=== PATIENT | male | born 1955 | race Two or more races ===

== ENCOUNTER 2016-10-08 08:01 | Day surgery (SDC) | payer MEDICARE ==
[2016-10-07 12:00] VITALS: BMI 31.6
[2016-10-08] MEDS ORDERED: ceFAZolin SODIUM 1 GM VIAL ONE (08:17)
[2016-10-08] MEDS ORDERED: ePHEDrine SULFATE 50 MG/1 ML AMPULE ONE (08:17)
[2016-10-08] MEDS ORDERED: KETOROLAC TROMETHAMINE 30 MG/1 ML VIAL ONE (08:17)
[2016-10-08] MEDS ORDERED: DEXAMETHASONE SOD PHOSPHATE 4 MG/1 ML VIAL ONE (08:17)
[2016-10-08] MEDS ORDERED: SODIUM CHLORIDE 0.9% P/F 10 ML VIAL IJ ONE (08:17)
[2016-10-08] MEDS ORDERED: MIDAZOLAM HCL 2 MG/2 ML SINGLE DOSE VIAL ONE ×3 (08:18→08:52)
[2016-10-08] MEDS ORDERED: ROCURONIUM BROMIDE 50 MG/5 ML VIAL ONE (08:18)
[2016-10-08] MEDS ORDERED: SUCCINYLCHOLINE CHLORIDE 200 MG/10 ML VIAL ONE (08:18)
[2016-10-08] MEDS ORDERED: ROPIVACAINE HCL 0.5% 30ML VIAL ONE (08:52)
--- NOTE | 2016-10-08 09:41 | HP ---
Satellite [facility] - Chief Complaint Chief Complaint: left shoulder pain - Past Medical History Allergies/Adverse Reactions: Allergies Allergy/AdvReac Type Severity Reaction Status Date / Time No Known Drug Allergies Allergy Verified 10/07/16 12:00 - Current Medications Current Medications: Home Medications Medication Instructions Recorded Amlodipine Besylate/Benazepril 1 each PO DAILY 10/07/16 [Lotrel 5-40 mg Capsule] Fenofibrate [Lofibra] 160 mg PO DAILY 10/07/16 Simvastatin 20 mg PO DAILY 10/07/16 Hydrocodone/Acetaminophen 1 each PO Q6H #40 tablet MDD 4 10/08/16 [Hydrocodon-Acetaminoph 7.5-325] Satellite Physical Exam - Physical Examination Vital Signs: Vital Signs Period Temp Pulse Resp BP Sys/Sandoval Pulse Ox Last 24 Hr 97.4 F 69 18 139/74 99 General Appearance: Well Nourished, Well Developed, Alert & Oriented x3 ENT: Clear Lung: Normal air movement Heart: Regular rate & rhythm Extremities: Other (left shoulder- + ttp, decr rom, + neer, + rasmussen, nvi) Neurological: Intact, Alert, Oriented Satellite Impression/Plan - Impression/Plan Impression: left shoulder impingement Operative Procedure: left shoulder arthroscopy with KORY AVINA Date to be Performed: 10/08/16
[2016-10-08] MEDS ORDERED: ceFAZolin SODIUM 1 GM VIAL IVPB ONE (09:51)
--- NOTE | 2016-10-08 11:02 | OP ---
Operative Note - Note: Operative Date: 10/08/16 Pre-Operative Diagnosis: left shoulder subacromial impingement, adhesive capsulitis Operation: left shoulder arthroscopy, subacromial decompression, distal clavicle excision, extensive debridement, manipulation under anesthesia Post-Operative Diagnosis: Same as Pre-op Surgeon: Jamin Aguilar Cut Off Machine Operator: Blas Crisostomo Anesthesiologist/TRACK OILER: Chris Kelsey Jr. Anesthesia: General, Local Specimens Removed: shavings Estimated Blood Loss (mls): 50 Blood Volume Replaced (mls): 0 Fluid Volume Replaced (mls): 700 Operative Report Dictated: Yes
[2016-10-08] MEDS ORDERED: ONDANSETRON 4 MG/2 ML VIAL IVPUSH PRN (11:42)
[2016-10-08] MEDS ORDERED: oxyCODONE HCL 5 MG TABLET PO PRN (11:42)
[2016-10-08] MEDS ORDERED: LACTATED RINGERS SOLUTION 1,000 ML IV SCH (11:45)
--- NOTE | 2016-10-08 12:21 | OP ---
DATE OF OPERATION: PREOPERATIVE DIAGNOSIS: Left shoulder subacromial impingement and adhesive capsulitis. POSTOPERATIVE DIAGNOSIS: Left shoulder subacromial impingement and adhesive capsulitis. PROCEDURE: Left shoulder arthroscopy, subacromial decompression, distal clavicle excision, and manipulation under anesthesia. SURGEON: Harsh Remy MD CORPORATE WELLNESS COORDINATOR: DAWN Chavis ANESTHESIA: Chris Kelsey, RADIOGRAPHER TECHNOLOGIST, left interscalene block, LMA anesthesia. DRAINS: None. COMPLICATIONS: None. BLOOD LOSS: Minimal. BLOOD GIVEN: None. FLUID REPLACEMENT: 700 mL Plasma-Lyte. INDICATIONS: This patient is a 61-year-old male with a preoperative diagnosis of left shoulder subacromial impingement and adhesive capsulitis. After understanding the potential risks, complications, alternatives, benefits to surgery versus nonsurgical treatment, the patient was brought to the operating room. DESCRIPTION OF PROCEDURE: The patient was brought to the operating room. Peripheral IV place. IV sedation given. Then 1 g of IV Ancef was given. A left interscalene block was performed. LMA anesthesia was induced. He was placed into the beach chair position then measured his range of motion. He had a significant adhesive capsulitis. He had only 1 or 2 degrees of external rotation. Abduction was to 85 degrees. Forward flexion was to 90 degrees. Internal rotation was limited as well. I did a manipulation under anesthesia and improved his range of motion dramatically in all planes. The left upper extremity was then prepped and draped in sterile fashion. The bony landmarks were marked out with a marking pen and a posterior portal established. The diagnostic glenohumeral arthroscopy was performed. Although there was some blood in the joint, which was evacuated, there was no rotator cuff tear. The labrum looked good. There was no glenohumeral arthritis. The biceps tendon looked good. Everything inside the joint looked good. It was irrigated and washed out. Next, our attention was turned to the subacromial space. Lateral portal was established with a spinal needle and No. 11 scalpel blade. A green cannula was introduced into the subacromial space. There was a tremendous amount of subacromial bursitis. After extensive debridement using the ArthroCare wand revealed a very large subacromial bony spur as well as a subclavicular spur. Additional soft tissue debridement was done with the ArthroCare wand then the straight shaver then the 5.5-mm oval bur was used to take down the subacromial and distal subclavicular spur. It was then cleaned up with a shaver. All bony debris was removed. The top surface of the rotator cuff was directly visualized and the arm put through a full range of motion. There was no evidence of pathology of the top surface of the rotator cuff. The area was copiously irrigated and washed out. All excess saline removed. The arthroscopy portal was closed with 3-0 nylon sutures in a figure of eight fashion. The area was then washed and dried and covered with two 4-inch Aquacel dressings and a sling was put on. Total operative time was about 45 minutes. There were no complications during the case. The patient tolerated the procedure quite well. He was extubated and brought to the regular recovery room in stable condition. HARSH REMY M.D. [id number]
[2016-10-08 12:57] VITALS: TEMP 98
[2016-10-08] MEDS ORDERED: oxyCODONE HCL 5 MG TABLET ONE (13:15)
[2016-10-08 14:03] VITALS: BP 153/75; PULSE 81
--- NOTE | 2016-10-09 12:58 | PATH ---
Surgical Pathology Report Patient Name: MIGUEL A MASTERS [facility]. Rec. #: [id number] /Age/Gender: 1955 (Age: 61) / M Account: [id number] Location: [facility] SURGICAL Taken: 10/08/2016 Received: 10/08/2016 Reported: 10/09/2016 Physicians: Jamin Aguilar M.D. Specimen(s) Received LEFT SHOULDER SHAVINGS Clinical History Left shoulder impingement Frozen shoulder (adhesive capsulitis) Final Diagnosis LEFT SHOULDER, ARTHROSCOPIC SHAVING: PORTIONS OF SYNOVIUM, CARTILAGE, SKELETAL MUSCLE AND BONE CONSISTENT WITH ARTHROSCOPIC SHAVINGS. Electronically Signed Fletcher Nicole M.D. Gross Description Received in formalin, labeled "left shoulder shavings," is a 4.5 x 4.0 x 0.5 cm. aggregate of mcdermott-yellow soft tissue fragments. A new accounts banking representative portion is submitted in one cassette. /10/08/201610/08/2016
== END 2016-10-08 14:00 | disposition home or self-care (01) ==
LOC: JASU-SURG 08:01
PROVIDERS: ATTEND Orthopaedic Surgery
PROC: 0RBK4ZZ Excision of Left Shoulder Joint, Percutaneous Endoscopic Approach (ICD-10-PCS; principal; 2016-10-08 09:30)
PROC: 0PBB4ZZ Excision of Left Clavicle, Percutaneous Endoscopic Approach (ICD-10-PCS; 2016-10-08 09:30)
DX: M75.42 Impingement syndrome of left shoulder (principal); M75.02 Adhesive capsulitis of left shoulder
CPT/HCPCS: 88304-TC; 94760

== ENCOUNTER 2019-02-01 15:20 | Inpatient (IN) | payer OTHER ==
[2019-02-01] MEDS ORDERED: DIPHTH,PERTUSS(ACELL),TET 0.5 ML DISP.SYRIN IM ONE ×2 (15:38→17:46)
[2019-02-01] MEDS ORDERED: SODIUM CHLORIDE 1,000 ML IV STA (15:38)
[2019-02-01 15:39] VITALS: BMI 31.6
--- NOTE | 2019-02-01 15:44 | PDOC ---
Rapid Medical Evaluation Chief Complaint: Syncope/Near Syncope Time Seen by Provider: 02/01/19 15:36 Medical Evaluation: Allergies Allergy/AdvReac Type Severity Reaction Status Date / Time No Known Drug Allergies Allergy Verified 10/07/16 12:00 02/01/19 15:39 Pt c/o: flet dizzy after going outside x 5 minutes. Then woke up on the ground with abrasions to rt forehead Pt on brief exam: vss, noted superficial to forehead Pt ordered for: labs, ekg, iv, head ct, bgm pt to proceed to the ED Discharge Disposition - Diagnosis Syncope Qualifiers: Syncope type: unspecified Qualified Code(s): R55 - Syncope and collapse - Referrals - Patient Instructions - Post Discharge Activity
--- NOTE | 2019-02-01 17:38 | PDOC ---
History of Present Illness - General Chief Complaint: Syncope/Near Syncope Stated Complaint: SYNCOPE/INJURY Time Seen by Provider: 02/01/19 15:36 - History of Present Illness Initial Comments: The pt is a 63M w/ a history of HTN and HLD who presents for evaluation s/p syncopal fall from standing today. He reports that he was sitting outside washing clothes, stood rapidly, syncopized, hit his head on the [employer] walkway and quickly recovered. He endorses several months of intermittent lightheadedness that is described as both room spinning and feeling as though he may pass out. It is usually worse with sit to stand or bend over to stand. He has never syncopized before. He denies any cardiac/neurologic w/u for his dizziness. He denies chest pain before or after the event. Denies recent illness, fevers/chills, chest pain, SOB, abdominal pain, V/C/D, dysuria, hematuria, blood in stool or changes in sensation Denies recent changes in HTN meds or PO intake PMH: HTN, HLD PSH: Knee surgery Allergies: Denies SH: Denies x3 02/01/19 18:34 Past History - Past Medical History Allergies/Adverse Reactions: Allergies Allergy/AdvReac Type Severity Reaction Status Date / Time No Known Drug Allergies Allergy Verified 10/07/16 12:00 Home Medications: Ambulatory Orders Amlodipine Besylate/Benazepril [Lotrel 5-40 mg Capsule] 1 each PO DAILY Fenofibrate [Lofibra] 160 mg PO DAILY 10/07/16 Simvastatin 20 mg PO DAILY 10/07/16 Tamsulosin HCl 0.4 mg PO DAILY 02/01/19 Anemia: No Asthma: No Cancer: Yes (COLON 2009) Cardiac Disorders: No CVA: No COPD: No CHF: No Dementia: No Diabetes: No GI Disorders: No Disorders: No HTN: Yes Hypercholesterolemia: Yes Liver Disease: No Seizures: No Thyroid Disease: No - Surgical History Abdominal Surgery: Yes Appendectomy: No Cardiac Surgery: No Cholecystectomy: No Lung Surgery: No Neurologic Surgery: No Orthopedic Surgery: No - Suicide/Smoking/Psychosocial Hx Smoking History: Never smoked Have you smoked in the past 12 months: No Information on smoking cessation initiated: No Hx Alcohol Use: No Drug/Substance Use Hx: No Substance Use Type: None Hx Substance Use Treatment: No Review of Systems - Review of Systems Able to Perform ROS?: Yes Comments:: GENERAL/CONSTITUTIONAL: No fever or chills. No weakness HEAD, EYES, EARS, NOSE AND THROAT: No change in vision. No ear pain or discharge. No sore throat CARDIOVASCULAR: No chest pain or shortness of breath RESPIRATORY: Denies cough, hemoptysis GASTROINTESTINAL: No vomiting, diarrhea or constipation GENITOURINARY: No dysuria, frequency, or change in urination MUSCULOSKELETAL: No joint or muscle swelling or pain. No neck or back pain SKIN: +abrasion to R forehead NEUROLOGIC: No or change in strength/sensation ENDOCRINE: No increased thirst. No abnormal weight change HEMATOLOGIC/LYMPHATIC: No anemia, easy bleeding, or history of blood clots ALLERGIC/IMMUNOLOGIC: No hives or skin allergy 02/01/19 17:37 Is the patient limited Turkmen proficient: No *Physical Exam - Vital Signs Last Vital Signs Temp Pulse Resp BP Pulse Ox 98.2 F 81 78 H 105/74 97 02/01/19 15:36 02/01/19 15:36 02/01/19 15:36 02/01/19 15:36 02/01/19 15:36 - Physical Exam Comments: GENERAL: Awake, alert, and oriented to person/place/time, in no acute distress HEAD: No signs of trauma, normocephalic, atraumatic EYES: PERRLA, EOMI, sclera anicteric, conjunctiva clear ENT: Hearing grossly normal, nares patent, oropharynx clear without exudates. Moist mucosa LUNGS: No distress, speaks in full sentences, clear to auscultation bilaterally HEART: Regular rate and rhythm, normal S1 and S2, no murmurs appreciated, peripheral pulses normal and equal bilaterally ABDOMEN: Soft, nontender, normoactive bowel sounds. No guarding, no rebound EXTREMITIES: Normal inspection, Normal range of motion, no edema. No clubbing or cyanosis NEUROLOGICAL: Cranial nerves II through XII grossly intact. Normal speech, normal gait, no focal sensorimotor deficits SKIN: 1cm laceration above R eyebrow, linear, w/o active hemorrhage 02/01/19 17:37 Procedures - Laceration/Wound Repair Right Upper Face Wound Length: to 2.5 cm Wound Explored: clean Wound's Depth, Shape: superficial Irrigated w/ Saline: Yes Betadine Prep: No Anesthesia: 1% Lidocaine Amount of Anesthetic (ccs): 3 Wound Repaired With: Sutures Suture Size/Type: 5:0 Number of Sutures: 4 Layer Closure: No Sterile Dressing Applied: Yes (Bacitracin and sterile gauze) ED Treatment Course - LABORATORY CBC & Chemistry Diagram: 02/01/19 18:16 02/01/19 18:16 Medical Decision Making - Medical Decision Making The pt is a 63M w/ a history of HTN and HLD who presents for evaluation s/p syncopal fall from standing and a R forehead laceration Ddx includes othostatic, vasovagal, consider but less likely ACS, lyte abn, AAA/ AD ED Course Labs sent ECG CXR CT head R eyebrow laceration repaired w/ 4 5-0 nylon sutures which will need to be removed in 5-7 days -Wash daily with soap and water. Pat dry. Apply bacitracin/neosporin for the first 1-3 days. May leave open to air otherwise Plan for tele obs for syncope CT Head w/o acute pathology Labs pending Pt signed out to Dr. Boyd 02/01/19 19:02 *DC/Admit/Observation/Transfer Diagnosis at time of Disposition: Syncope Qualifiers: Syncope type: unspecified Qualified Code(s): R55 - Syncope and collapse - Referrals Referrals: Jeremiah Martinez MD [Primary Care Provider] - - Patient Instructions - Post Discharge Activity
--- NOTE | 2019-02-01 18:36 | PDOC ---
Documentation entered by Everette Edmondson SCRIBE, acting as scribe for Jena Justice MD. Jena Justice MD: This documentation has been prepared by the sharminibe, Everette Edmondson SCRIBE, under my direction and personally reviewed by me in its entirety. I confirm that the documentation accurately reflects all work, treatment, procedures, and medical decision making performed by me. Attending Attestation - Resident Resident Name: Christopher Bajwa - ED Attending Attestation I have performed the following: I have examined & evaluated the patient, The case was reviewed & discussed with the resident, I agree w/resident's findings & plan, Exceptions are as noted - HPI HPI: 02/01/19 18:10 63-year-old male was outside washing clothes and passed out He said he fell and hit his head on the walkway. He was able to stand up after the incident with assistance. History of present illness he has had several of these episodes of lightheadedness in the last few months. Past medical history hypertension. He is not on any anticoagulation. Impression :close head trauma ,syncope. Patient will get cardiac workup, head CT and be admitted to telemetry 02/01/19 18:17 02/01/19 18:28 - Physicial Exam PE: 02/01/19 18:29 63 -year-old male presents after head trauma and syncope head :he has a right forehead abrasion, small 2 cm laceration and hematoma eyes tom eomi Face : no nasal bridge involvement,no fracture teeth, no mandibular tenderness neck no cervical tenderness lungs cta b/l cvs [id number] abd no tenderness extremities :no deformities, no ecchymosis skin warm and dry neuro axox3,no gross focal neuro deficits , dtr+2,motor strength 5/5,b/l - Medical Decision Making 02/01/19 18:[address] scan head/cardiac monitoring,labs,ekg,admit to telemetry 02/01/19 19:53 ct scan head no acute intracranial pathology labs wnl, negative first trop pt admitted to hospitalist /telemetry
[2019-02-01 18:55] LABS: BASO % 0.4 % (0-2.0); EOS % 0.5 % (0-4.5); HEMATOCRIT 47.2 % (35.4-49); HEMOGLOBIN 15.7 GM/dL (11.7-16.9); LYMPH % 11.9 % (8-40); MCH 29.5 pg (25.7-33.7); MCHC 33.2 g/dl (32.0-35.9); MEAN PLT VOLUME 10.2 fl (7.5-11.1); MONO % 7.3 % (3.8-10.2); NEUT % 79.9 % (42.8-82.8); PLATELET COUNT 200 K/MM3 (134-434); RDW 14.1 % (11.9-15.9); WHITE BLOOD COUNT 9.4 K/mm3 (4.0-10.0)
[2019-02-01 18:56] LABS: EPI CELLS 0.7 /HPF (0-5/HPF); HYALINE CASTS 3 /lpf (0-8); PH,URINE 6.5 (5.0-8.0); URINE APPEARANCE CLEAR; URINE BILIRUBIN NEGATIVE (NEGATIVE); URINE COLOR YELLOW; URINE GLUCOSE (UA) NEGATIVE (NEGATIVE); URINE KETONE TRACE (NEGATIVE); URINE LEUK ESTERASE TRACE (NEGATIVE); URINE NITRITE NEGATIVE (NEGATIVE); URINE PROTEIN NEGATIVE (NEGATIVE); URINE RBC 1 /hpf (0-4); URINE WBC 4 /hpf (0-5)
--- NOTE | 2019-02-01 19:17 | PDOC ---
*Physical Exam - Vital Signs Last Vital Signs Temp Pulse Resp BP Pulse Ox 98.2 F 81 78 H 105/74 97 02/01/19 15:36 02/01/19 15:36 02/01/19 15:36 02/01/19 15:36 02/01/19 15:36 ED Treatment Course - LABORATORY CBC & Chemistry Diagram: 02/01/19 18:16 02/01/19 18:16 - ADDITIONAL ORDERS Additional order review: Laboratory Results 02/01/19 02/01/19 19:06 18:35 POC Glucometer 123 Urine Color Yellow Urine Appearance Clear Urine pH 6.5 Ur Specific [place] 1.025 Urine Protein Negative Urine Glucose (UA) Negative Urine Ketones Trace H Urine Blood Negative Urine Nitrite Negative Urine Bilirubin Negative Urine Urobilinogen 1.0 Ur Leukocyte Esterase Trace Urine WBC (Auto) 4 Urine RBC (Auto) 1 Urine Casts (Auto) 3 U Epithel Cells (Auto) 0.7 Urine Bacteria (Auto) 2.0 02/01/19 19:06 POC Glucometer 123 - Medications Given in the ED: ED Medications Discontinued Medications Generic Name Dose Route Start Last Admin Trade Name Freq PRN Reason Stop Dose Admin Diphtheria/Tetanus/Acell Pertussis 0.5 ml 02/01/19 15:38 02/01/19 18:37 Boostrix - IM 02/01/19 15:39 0.5 ml .ONCE ONE Administration Sodium Chloride 1,000 mls @ 1,000 mls/hr 02/01/19 15:38 02/01/19 18:35 Normal Saline - IV 02/01/19 16:37 1,000 mls/hr ASDIR STA Administration Medical Decision Making - Medical Decision Making 02/01/19 19:10 Jeremi Van is a 63yo man with a PMH of HTN and HLD who presented to the ED with syncope. He reports that he has had numerous episodes of dizziness in the past but has never fainted; he has not been worked up for the episodes previously. ED course so far notable for: - Laceration, repaired by Dr Bajwa - Borderline hypotensive on arrival w/ SBP 105 - Labs pending - CT head negative for acute injury - Per Dr Bajwa, plan to admit to tele for additional workup has been discussed with the pt 02/01/19 19:40 - Labs completed. No concerning abnormalities - UA negative - PMD is not on staff (Dr Jeremiah Martinez). Will send microblog for admission for syncope workup 02/01/19 19:54 - Discussed with hospitalist team, Dr Kennedy. Will be admitted to Dr Lockett's service - Orthostatic vitals ordered - Updated pt and family. All agree with the plan Discussed with Dr Justice. Akua Boyd PGY2 *DC/Admit/Observation/Transfer Diagnosis at time of Disposition: Syncope Qualifiers: Syncope type: unspecified Qualified Code(s): R55 - Syncope and collapse - Discharge Dispostion Decision to Admit order: Yes - Referrals Referrals: Jeremiah Martinez MD [Primary Care Provider] - - Patient Instructions - Post Discharge Activity
[2019-02-01 19:18] LABS: ALBUMIN 4.4 g/dl (3.4-5.0); BILIRUBIN,TOTAL 0.4 mg/dL (0.2-1); BLOOD UREA NITROGEN 10.8 mg/dL (7-18); CALCIUM 9.4 mg/dL (8.5-10.1); CREATININE 0.9 mg/dL (0.55-1.3); POTASSIUM 4.1 mmol/L (3.5-5.1); TOT PROT 7.5 g/dl (6.4-8.2)
--- NOTE | 2019-02-01 19:59 | PN ---
Teaching Attending Note Name of Resident: Shara Kennedy ATTENDING PHYSICIAN STATEMENT I saw and evaluated the patient. I reviewed the resident's note and discussed the case with the resident. I agree with the resident's findings and plan as documented. SUBJECTIVE: Patient is a 63-year-old man with PMH of HTN, HLD, BPH, Rectal cancer and ? remote DVT who was outside washing clothes and passed out. He said he fell and hit his head on the walkway. He was able to stand up after the incident with assistance. He has had several of these episodes of lightheadedness in the last few months. He is not on any anticoagulation. Nonsmoker and denies use of any illicit drugs or alcohol abuse. No recent sick contacts or travel. Denies chest pain, SOB, abdominal pain, nausea, vomiting, diarrhea, constipation, dysuria, hematuria, blood in stool or changes in sensation. Got tetanus shot in the ER. OBJECTIVE: Alert and not orthostatic Vital Signs Period Temp Pulse Resp BP Sys/Sandoval Pulse Ox Last 24 Hr 98.2 F 81 78 105/74 97 HEENT: No Jaundice, eye redness or discharge, PERRLA, EOMI. Normocephalic; right eyebrow laceration sutured. External ears are normal and hearing is grossly intact. No nasal discharge. Neck: Supple, nontender. No palpable adenopathy or thyromegaly. No JVD Chest: Good effort. Clear to auscultation and percussion. Heart: Regular. No S3, rub or murmur Abdomen: Not distended, soft, nontender and no HSM. No rebound or guarding. Normal bowel sounds. Ext: Peripheral pulses intact. No leg edema. Skin: Warm and dry. No petechiae, rash or ecchymosis. Neuro: Alert. Oriented x3. CN 2-12 grossly intact. Sensation grossly intact in all four extremities and DTR are symmetric. Psych: Appropriate mood and affect. Good insight. Home Medications Medication Instructions Recorded Amlodipine Besylate/Benazepril 1 each PO DAILY 10/07/16 [Lotrel 5-40 mg Capsule] Fenofibrate [Lofibra] 160 mg PO DAILY 10/07/16 Simvastatin 20 mg PO DAILY 10/07/16 Tamsulosin HCl 0.4 mg PO DAILY 02/01/19 Abnormal Lab Results 02/01/19 02/01/19 18:16 18:35 Anion Gap 7 L Urine Ketones Trace H ASSESSMENT AND PLAN: 1. Syncope - Cause unclear. No acute pathology on noncontrast head CT and CXR. EKG shows MARV with 1o AV block and no significant ST-T wave changes and initial troponin is negative. Will admit to telemetry, get brain MRI/MRA, carotid doppler, TSH, urine toxicology, EEG and Neurology consult. Implement strict fall precautions. 2. Obesity Counseled on the risks associated with obesity. Will provide patient all the necessary assistance, counseling and positive reinforcement to facilitate weight loss. Consult construction driller. 3. Hypertension - BP was low on arrival. Will restart suitable outpatient antihypertensive drugs when clinically appropriate. Revise regimen to ensure good BP control. Nonpharmacologic measures to control hypertension like weight loss, salt restriction and exercise discussed. 4. DVT prophylaxis - Lovenox 40 mg SQ q 24 hours. 5. Advance directives - Full code
[2019-02-01] MEDS ORDERED: PATIENT'S OWN MEDICATION (NON-FORMULARY) (Simvastatin [Simvastatin] 20 MG) PO SCH (21:00)
[2019-02-01] MEDS ORDERED: ENOXAPARIN NA (PORCINE) 40 MG/0.4 ML DISP.SYRIN SQ ONE (21:26)
--- NOTE | 2019-02-01 21:30 | HP ---
CHIEF COMPLAINT: syncope PCP: Juan HISTORY OF PRESENT ILLNESS: Mr. Van is a 63 yo male with HTN, HLD, and hx of rectal ca who presents after syncopal episode. He was outside washing clothes and while leaning over felt dizzy and lost consciousness and hit his head on a decorative rock. He reports he has had episodes of dizziness intermittently for the last 3 years, no syncope. No neuro workup has been done. He has seen cards in the past and reports generally no significant problems. He reported nausea with this syncope , although he says he is not normally nauseous when he gets dizzy. He has a head lac on the right forehead with some associated pain isolated to that area. He does not have a generalized headache. He denies diaphoresis, chest pain, recent changes in appetite or oral intake. He reports swelling in upper and lower extremities bilaterally with occasional numbness in hands. Patient's family at bedside to help with translation. ER course was notable for: (1) (2) (3) Recent Travel: PAST MEDICAL HISTORY: 1. HTN 2. HLD 3. rectal ca 4. lumbar radiculopathy PAST SURGICAL HISTORY: colon cancer with colostomy Social History: Smoking: none Alcohol: none Drugs: none Lives at home with daughter and Family History: mother- breast cancer father- [place] age 75 brother- CABG in 50s Allergies No Known Drug Allergies Allergy (Verified 10/07/16 12:00) HOME MEDICATIONS: Home Medications Medication Instructions Recorded Amlodipine Besylate/Benazepril 1 each PO DAILY 10/07/16 [Lotrel 5-40 mg Capsule] Fenofibrate [Lofibra] 160 mg PO DAILY 10/07/16 Simvastatin 20 mg PO DAILY 10/07/16 Tamsulosin HCl 0.4 mg PO DAILY 02/01/19 REVIEW OF SYSTEMS CONSTITUTIONAL: Absent: fever, chills, diaphoresis, generalized weakness, malaise, loss of appetite, weight change HEENT: Absent: eye pain, visual changes CARDIOVASCULAR: Absent: chest pain, syncope, palpitations, irregular heart rate, peripheral edema RESPIRATORY: Absent: cough, shortness of breath, dyspnea with exertion GASTROINTESTINAL: Present: nausea Absent: abdominal pain, abdominal distension, vomiting GENITOURINARY: Absent: dysuria MUSCULOSKELETAL: Present: back pain Absent: myalgia, arthralgia, joint swelling, neck pain SKIN: Present: wound Absent: rash, itching, pallor HEMATOLOGIC/IMMUNOLOGIC: Absent: easy bleeding, easy bruising, lymphadenopathy, frequent infections ENDOCRINE: Absent: unexplained weight gain, unexplained weight loss NEUROLOGIC: Present: dizziness Absent: headache, focal weakness or paresthesias, dizziness, unsteady gait, seizure, mental status changes, bladder or bowel incontinence PSYCHIATRIC: Absent: anxiety, depression, suicidal or homicidal ideation, hallucinations. PHYSICAL EXAMINATION Vital Signs - 24 hr 02/01/19 02/01/19 15:36 20:19 Temperature 98.2 F Pulse Rate 81 Pulse Rate [ 66 Left side Sitting] Pulse Rate [ 63 Right side Supine] Respiratory 78 H Rate Blood Pressure 105/74 Blood Pressure 128/74 [Left side Sitting] Blood Pressure 125/74 [Right side Supine] O2 Sat by Pulse 97 Oximetry (%) GENERAL: Awake, alert, and fully oriented, in no acute distress. HEAD: R frontal head wound, taped, no bleeding EYES: Pupils equal, round and reactive to light, extraocular movements intact, sclera anicteric, conjunctiva clear. No lid lag. EARS, NOSE, THROAT: Ears normal, nares patent, moist mucous membranes. NECK: Normal range of motion, supple without lymphadenopathy, JVD, or masses. LUNGS: Breath sounds equal, clear to auscultation bilaterally. No wheezes, and no crackles. No accessory muscle use. HEART: Regular rate and rhythm, normal S1 and S2 without murmur, rub or gallop. ABDOMEN: Soft, nontender, not distended, normoactive bowel sounds, no guarding, no rebound, no masses. No hepatomegaly or splenomegaly. MUSCULOSKELETAL: Normal range of motion at all joints. No bony deformities or tenderness. UPPER EXTREMITIES: 2+ pulses, warm, well-perfused. No cyanosis. No clubbing. Minimal edema in hands. LOWER EXTREMITIES: 2+ pulses, warm, dusky color. Minimal edema in feet. NEUROLOGICAL: Cranial nerves II-XII intact. Normal speech. PSYCHIATRIC: Cooperative. Good eye contact. Appropriate mood and affect. SKIN: Warm, dry, normal turgor, no rashes noted, normal capillary refill. Laboratory Results - last 24 hr 02/01/19 02/01/19 02/01/19 18:16 18:16 18:16 WBC 9.4 RBC 5.30 Hgb 15.7 Hct 47.2 MCV 89.0 MCH 29.5 MCHC 33.2 RDW 14.1 Plt Count 200 MPV 10.2 Absolute Neuts (auto) 7.5 Neutrophils % 79.9 Lymphocytes % 11.9 Monocytes % 7.3 Eosinophils % 0.5 Basophils % 0.4 Nucleated RBC % 0 Sodium 141 Potassium 4.1 Chloride 106 Carbon Dioxide 28 Anion Gap 7 L BUN 10.8 Creatinine 0.9 Est GFR (CKD-EPI)AfAm 105.72 Est GFR (CKD-EPI)NonAf 91.22 POC Glucometer Random Glucose 95 Calcium 9.4 Total Bilirubin 0.4 AST 15 ALT 20 Alkaline Phosphatase 56 Creatine Kinase 159 Creatine Kinase Index 1.0 CK-MB (CK-2) 1.7 Troponin I < 0.02 Total Protein 7.5 Albumin 4.4 Urine Color Urine Appearance Urine pH Ur Specific [place] Urine Protein Urine Glucose (UA) Urine Ketones Urine Blood Urine Nitrite Urine Bilirubin Urine Urobilinogen Ur Leukocyte Esterase Urine WBC (Auto) Urine RBC (Auto) Urine Casts (Auto) U Epithel Cells (Auto) Urine Bacteria (Auto) 02/01/19 02/01/19 18:35 19:06 WBC RBC Hgb Hct MCV MCH MCHC RDW Plt Count MPV Absolute Neuts (auto) Neutrophils % Lymphocytes % Monocytes % Eosinophils % Basophils % Nucleated RBC % Sodium Potassium Chloride Carbon Dioxide Anion Gap BUN Creatinine Est GFR (CKD-EPI)AfAm Est GFR (CKD-EPI)NonAf POC Glucometer 123 Random Glucose Calcium Total Bilirubin AST ALT Alkaline Phosphatase Creatine Kinase Creatine Kinase Index CK-MB (CK-2) Troponin I Total Protein Albumin Urine Color Yellow Urine Appearance Clear Urine pH 6.5 Ur Specific [place] 1.025 Urine Protein Negative Urine Glucose (UA) Negative Urine Ketones Trace H Urine Blood Negative Urine Nitrite Negative Urine Bilirubin Negative Urine Urobilinogen 1.0 Ur Leukocyte Esterase Trace Urine WBC (Auto) 4 Urine RBC (Auto) 1 Urine Casts (Auto) 3 U Epithel Cells (Auto) 0.7 Urine Bacteria (Auto) 2.0 ASSESSMENT/PLAN: The patient is a 63 yo male with HTN, HLD, and rectal cancer who has been having intermittent dizziness over the last several years and had a syncopal episode today. 1. syncope Patient has not had a neuro workup since experiencing the dizziness about 3 years ago. His head CT was negative, EKG showed 1st degree AV block but otherwise unremarkable for arrhythmia. Pt's orthostatic negative (supine 124/80 60HR, sitting 130/92 64HR) so should be adequately hydrated. He has normal WBC, is afebrile, and normotensive and CXR shows no apparent pneumonia, so unlikely underlying infection occurring. -fluids -CBC -CMP -TSH -urine toxicology -carotid doppler r/o vascular disease -MRI brain r/o ischemia, hemorrhage -EEG r/o seizure -neuro consult DVT prophylaxis Lovenox 40mg SQ daily FEN NS 75mL/hr monitor electrolytes cardiac diet Visit type - Emergency Visit Emergency Visit: Yes ED Registration Date: 02/01/19 Care time: The patient presented to the Emergency Department on the above date and was hospitalized for further evaluation of their emergent condition. - New Patient This patient is new to me today: Yes Date on this admission: 02/02/19 - Critical Care Critical Care patient: No ATTENDING PHYSICIAN STATEMENT I saw and evaluated the patient. I reviewed the resident's note and discussed the case with the resident. I agree with the resident's findings and plan as documented. SUBJECTIVE: OBJECTIVE: ASSESSMENT AND PLAN:
[2019-02-01] MEDS: SODIUM CHLORIDE 1,000 ML IV SCH (21:33)
[2019-02-01] MEDS: ENOXAPARIN NA (PORCINE) 40 MG/0.4 ML DISP.SYRIN SQ SCH (21:33)
[2019-02-02] MEDS: ATORVASTATIN CA 10 MG TABLET (FP) PO SCH ×2 (00:51→23:00)
[2019-02-02 06:51] LABS: BASO % 0.2 % (0-2.0); EOS % 0.9 % (0-4.5); HEMATOCRIT 41.4 % (35.4-49); LYMPH % 13.1 % (8-40); MCH 30.3 pg (25.7-33.7); MCHC 33.9 g/dl (32.0-35.9); MEAN CELL VOLUME 89.2 fl (80-96); MONO % 9.1 % (3.8-10.2); NEUT % 76.7 % (42.8-82.8); PLATELET COUNT 167 K/MM3 (134-434); RBC 4.64 M/mm3 (4.00-5.60); RDW 14.1 % (11.9-15.9); WHITE BLOOD COUNT 6.8 K/mm3 (4.0-10.0)
[2019-02-02 08:00] LABS: ALBUMIN 3.4 g/dl (3.4-5.0); ALK PHOS 50 U/L (45-117); ANION GAP 6 MMOL/L (8-16); BILIRUBIN,TOTAL 0.4 mg/dL (0.2-1); BLOOD UREA NITROGEN 10.2 mg/dL (7-18); CALCIUM 8.2 mg/dL (8.5-10.1); CHLORIDE 111 mmol/L (98-107); CO2 27 mmol/L (21-32); CREATININE 0.8 mg/dL (0.55-1.3); GLUCOSE,RANDOM 82 mg/dL (74-106); MAGNESIUM 2.4 mg/dL (1.8-2.4); PHOSPHOROUS 2.5 mg/dL (2.5-4.9); POTASSIUM 4.2 mmol/L (3.5-5.1); SGOT/AST 14 U/L (15-37); SGPT/ALT 18 U/L (13-61); SODIUM 144 mmol/L (136-145); TOT PROT 6.2 g/dl (6.4-8.2)
--- NOTE | 2019-02-02 08:33 | EKG ---
Test Reason : Blood Pressure : / mmHG Vent. Rate : 079 BPM Atrial Rate : 079 BPM P-R Int : 216 ms QRS Dur : 092 ms QT Int : 380 ms P-R-T Axes : 032 026 036 degrees QTc Int : 435 ms SINUS RHYTHM WITH 1ST DEGREE A-V BLOCK OTHERWISE NORMAL ECG NO PREVIOUS ECGS AVAILABLE Confirmed by LIV VELASCO, SILAS ([id number]) on 02/02/2019 8:32:54 AM Referred By: Confirmed By:SILAS PECK MD
[2019-02-02] MEDS: ENOXAPARIN NA (PORCINE) 40 MG/0.4 ML DISP.SYRIN SQ SCH (10:00)
[2019-02-02] MEDS ORDERED: PATIENT'S OWN MEDICATION (NON-FORMULARY) (Fenofibrate [Lofibra] 160 MG) PO SCH (10:00)
[2019-02-02] MEDS ORDERED: ENOXAPARIN NA (PORCINE) 40 MG/0.4 ML DISP.SYRIN SQ ONE (10:23)
--- NOTE | 2019-02-02 11:02 | CON.NEURO ---
Consult - History of Present Illness History of Present Illness: 63 yo male with HTN, HLD, and hx of rectal ca who presents after syncopal episode. He was outside washing clothes and while leaning over felt dizzy and lost consciousness for few seconds, and hit his head on a rock. He reports he has had episodes of dizziness intermittently for the last 3 years, no syncope. He has seen cards in the past and reports generally no significant problems. He reported nausea with this syncope, although he says he is not normally nauseous when he gets dizzy. He has a head lac on the right forehead with some associated pain isolated to that area. He does not have a generalized headache. He denies diaphoresis, chest pain, recent changes in appetite or oral intake. He reports swelling in upper and lower extremities bilaterally with occasional numbness in hands. NO HX of epilepsy. no toxic habits. no focal c/o. HD CT (-) - Alcohol/Substance Use Hx Alcohol Use: No - Smoking History Smoking history: Never smoked Have you smoked in the past 12 months: No Home Medications - Allergies Allergies/Adverse Reactions: Allergies Allergy/AdvReac Type Severity Reaction Status Date / Time No Known Drug Allergies Allergy Verified 02/02/19 07:23 - Home Medications Home Medications: Ambulatory Orders Amlodipine Besylate/Benazepril [Lotrel 5-40 mg Capsule] 1 each PO DAILY Fenofibrate [Lofibra] 160 mg PO DAILY 10/07/16 Simvastatin 20 mg PO DAILY 10/07/16 Tamsulosin HCl 0.4 mg PO DAILY 02/01/19 Physical Exam-Neuro Vital Signs: Vital Signs Temperature 98.1 F 02/02/19 10:45 Pulse Rate 65 02/02/19 10:45 Respiratory Rate 18 02/02/19 10:45 Blood Pressure 141/74 02/02/19 10:45 O2 Sat by Pulse Oximetry (%) 98 02/02/19 10:45 Labs: CBC, BMP 02/02/19 06:12 02/02/19 06:12 - Neuro Exam Level Of Consciousness: Yes: Alert, Oriented to Person (EOMI, no facila, motor 5 /5, reflexes symmetric ) Imaging - Results Cat Scan: Report Reviewed, Image Reviewed Assessment/Plan 63 yo male with HTN, HLD, and hx of rectal ca who presents after syncopal episode. He was outside washing clothes and while leaning over felt dizzy and lost consciousness for few seconds, and hit his head on a rock. He reports he has had episodes of dizziness intermittently for the last 3 years, no syncope. He has seen cards in the past and reports generally no significant problems. He reported nausea with this syncope, although he says he is not normally nauseous when he gets dizzy. He has a head lac on the right forehead with some associated pain isolated to that area. He does not have a generalized headache. He denies diaphoresis, chest pain, recent changes in appetite or oral intake. He reports swelling in upper and lower extremities bilaterally with occasional numbness in hands. NO HX of epilepsy. no toxic habits. no focal c/o. HD CT (-), labs WNL , TSH NL AP : syncopal episode-- ? vasovagal, preceded by vertigo; nonfocal neuro exam doubt vertebrobasilar disease, though since few episodes in past will check MRI MRA head and neck no evidence to suggest seizure or acute stroke, cardiac BROWN PRN DR LARES
--- NOTE | 2019-02-02 15:40 | ECHO ---
Name: GUERRERO OUSMANERICH Exam:Adult Echocardiogram Study Date: 02/02/2019 08:35 AM Age: 63 yrs Reason For Study: SYNCOPE Height: 65 in Weight: 190 lb BSA: 1.9 m2 MMode/2D Measurements & Calculations IVSd: 1.2 cm Ao root diam: 3.3 cm LVIDd: 4.4 cm LA dimension: 3.5 cm LVIDs: 2.7 cm LVPWd: 1.1 cm EDV(Teich): 86.1 ml LVOT diam: 2.0 cm ESV(Teich): 26.4 ml LAV (MOD-bp): 57.7 ml Doppler Measurements & Calculations MV E max jason: 70.3 cm/sec Ao V2 max: 156.1 cm/sec MV A max jason: 72.8 cm/sec Ao max P.7 mmHg MV E/A: 0.97 MV dec time: 0.15 sec NUNO(V,D): 2.1 cm2 LV V1 max P.3 mmHg TR max jason: 230.3 cm/sec LV V1 max: 103.8 cm/sec TR max P.3 mmHg PA V2 max: 134.4 cm/sec Med Peak E' Jason: 7.0 cm/sec PA max P.2 mmHg Med E/e': 10.1 Lat Peak E' Jason: 10.7 cm/sec Lat E/e': 6.6 PI Vmax: 133.0 cm/sec Procedure A two-dimensional transthoracic echocardiogram with color flow and Doppler was performed. Left Ventricle The left ventricular size, thickness and function are normal. The left ventricular ejection fraction is normal. E/A reversal consistent with but not diagnostic of poor LV compliance. The left ventricular w all motion is normal. Right Ventricle The right ventricle is normal in size and function. Atria Normal left and right atrial size and function. Mitral Valve There is mild mitral valve thickening. There is no mitral valve stenosis. There is mild mitral regurg itation. Tricuspid Valve There is mild tricuspid valve thickening. There is no tricuspid stenosis. There is mild tricuspid regurgitation. Right ventricular systolic pressure is normal. Aortic Valve The aortic valve is normal in structure and function. No hemodynamically significant valvular aortic stenosis. No aortic regurgitation is present. Pulmonic Valve The pulmonic valve is not well visualized. Great Vessels The aortic root is normal size. Pericardium/Pleura There is no pericardial effusion. Interpretation Summary The left ventricular size, thickness and function are normal The left ventricular ejection fraction is normal. The left ventricular wall motion is normal. There is mild mitral regurgitation. There is mild tricuspid regurgitation. Right ventricular systolic pressure is normal. E/A reversal consistent with but not diagnostic of poor LV compliance MD Mario Randolph 02/02/2019 03:40 PM
--- NOTE | 2019-02-02 16:00 | PN ---
Physical Exam: SUBJECTIVE: Patient seen and examined at bedside in ED this AM. Patient was lying comfortably in no acute distress. No acute events overnight. OBJECTIVE: Vital Signs Period Temp Pulse Resp BP Sys/Sandoval Pulse Ox Last 24 Hr 98.1 F-98.4 F 63-82 18-19 123-141/73-84 97-99 GENERAL: The patient is awake, alert, and fully oriented, in no acute distress. HEAD: rt sided laceration above eye brow. EYES: PERRL, extraocular movements intact, sclera anicteric, conjunctiva clear. No ptosis. NECK: full range of motion, supple. LUNGS: Breath sounds equal, clear to auscultation bilaterally, no wheezes, no crackles, no accessory muscle use. HEART: Regular rate and rhythm, S1, S2 without murmur, rub or gallop. ABDOMEN: Soft, nontender, nondistended, normoactive bowel sounds, no guarding, no rebound. EXTREMITIES: 2+ pulses, warm, well-perfused, no edema. NEUROLOGICAL: Cranial nerves II through XII intact, 5/5msk strength, 2+reflexes patellar, brachioradialis, triceps, achilles b/l. Gait was normal, negative romberg test, finger to nose test was normal. PSYCH: Normal mood, normal affect. SKIN: Warm, dry, rt side laceration on head, 3-4 stitches. Rectal exam- no tenderness, prostate smooth no nodules, stool in the vault, no gross blood. Laboratory Results - last 24 hr 02/01/19 02/01/19 02/01/19 18:16 18:16 18:16 WBC 9.4 RBC 5.30 Hgb 15.7 Hct 47.2 MCV 89.0 MCH 29.5 MCHC 33.2 RDW 14.1 Plt Count 200 MPV 10.2 Absolute Neuts (auto) 7.5 Neutrophils % 79.9 Lymphocytes % 11.9 Monocytes % 7.3 Eosinophils % 0.5 Basophils % 0.4 Nucleated RBC % 0 Sodium 141 Potassium 4.1 Chloride 106 Carbon Dioxide 28 Anion Gap 7 L BUN 10.8 Creatinine 0.9 Est GFR (CKD-EPI)AfAm 105.72 Est GFR (CKD-EPI)NonAf 91.22 POC Glucometer Random Glucose 95 Calcium 9.4 Phosphorus Magnesium Total Bilirubin 0.4 AST 15 ALT 20 Alkaline Phosphatase 56 Creatine Kinase 159 Creatine Kinase Index 1.0 CK-MB (CK-2) 1.7 Troponin I < 0.02 Total Protein 7.5 Albumin 4.4 TSH Urine Color Urine Appearance Urine pH Ur Specific [place] Urine Protein Urine Glucose (UA) Urine Ketones Urine Blood Urine Nitrite Urine Bilirubin Urine Urobilinogen Ur Leukocyte Esterase Urine WBC (Auto) Urine RBC (Auto) Urine Casts (Auto) U Epithel Cells (Auto) Urine Bacteria (Auto) 02/01/19 02/01/19 02/02/19 18:35 19:06 06:12 WBC 6.8 RBC 4.64 Hgb 14.0 Hct 41.4 MCV 89.2 MCH 30.3 MCHC 33.9 RDW 14.1 Plt Count 167 MPV 10.0 Absolute Neuts (auto) 5.2 Neutrophils % 76.7 Lymphocytes % 13.1 Monocytes % 9.1 Eosinophils % 0.9 Basophils % 0.2 Nucleated RBC % 0 Sodium Potassium Chloride Carbon Dioxide Anion Gap BUN Creatinine Est GFR (CKD-EPI)AfAm Est GFR (CKD-EPI)NonAf POC Glucometer 123 Random Glucose Calcium Phosphorus Magnesium Total Bilirubin AST ALT Alkaline Phosphatase Creatine Kinase Creatine Kinase Index CK-MB (CK-2) Troponin I Total Protein Albumin TSH Urine Color Yellow Urine Appearance Clear Urine pH 6.5 Ur Specific [place] 1.025 Urine Protein Negative Urine Glucose (UA) Negative Urine Ketones Trace H Urine Blood Negative Urine Nitrite Negative Urine Bilirubin Negative Urine Urobilinogen 1.0 Ur Leukocyte Esterase Trace Urine WBC (Auto) 4 Urine RBC (Auto) 1 Urine Casts (Auto) 3 U Epithel Cells (Auto) 0.7 Urine Bacteria (Auto) 2.0 02/02/19 06:12 WBC RBC Hgb Hct MCV MCH MCHC RDW Plt Count MPV Absolute Neuts (auto) Neutrophils % Lymphocytes % Monocytes % Eosinophils % Basophils % Nucleated RBC % Sodium 144 Potassium 4.2 Chloride 111 H Carbon Dioxide 27 Anion Gap 6 L BUN 10.2 Creatinine 0.8 Est GFR (CKD-EPI)AfAm 110.96 Est GFR (CKD-EPI)NonAf 95.74 POC Glucometer Random Glucose 82 Calcium 8.2 L Phosphorus 2.5 Magnesium 2.4 Total Bilirubin 0.4 AST 14 L ALT 18 Alkaline Phosphatase 50 Creatine Kinase Creatine Kinase Index CK-MB (CK-2) Troponin I < 0.02 Total Protein 6.2 L Albumin 3.4 TSH 1.64 Urine Color Urine Appearance Urine pH Ur Specific [place] Urine Protein Urine Glucose (UA) Urine Ketones Urine Blood Urine Nitrite Urine Bilirubin Urine Urobilinogen Ur Leukocyte Esterase Urine WBC (Auto) Urine RBC (Auto) Urine Casts (Auto) U Epithel Cells (Auto) Urine Bacteria (Auto) Active Medications Generic Name Dose Route Start Last Admin Trade Name Freq PRN Reason Stop Dose Admin Amlodipine Besylate 5 mg 02/03/19 10:00 Norvasc - PO DAILY FRANCISCA Atorvastatin Calcium 10 mg 02/01/19 22:00 02/02/19 00:51 Lipitor - PO 10 mg HS FRANCISCA Administration Enoxaparin Sodium 40 mg 02/01/19 21:00 02/02/19 10:00 Lovenox - SQ 40 mg DAILY FRANCISCA Administration Sodium Chloride 1,000 mls @ 75 mls/hr 02/01/19 21:00 02/01/19 21:33 Normal Saline - IV 75 mls/hr ASDIR FRANCISCA Administration Non-Formulary Medication 160 mg 02/02/19 10:00 Fenofibrate [Lofibra] PO DAILY FRANCISCA ASSESSMENT/PLAN: The patient is a 63 yo male with HTN, HLD, and rectal cancer who has been having intermittent dizziness over the last several years and had a syncopal episode today. 1. Orthostatic hypotension/? Vasovagal syncope - Head CT negative - EKG showing 1st degree AV block but otherwise unremarkable for arrhythmia. - Pt's orthostatic after giving fluids (supine 133/70 67 HR sitting 154/86 72 HR , Standing 149/81 HR 75). - normal WBC, afebrile, normotensive and CXR shows no apparent pneumonia, so unlikely underlying infection occurring. -TSH-1.64 -urine toxicology negative -carotid doppler showed intimal thickening and tiny plaques at Rt common carotid bifurcation/bulb and intimal thickening and small soft plaque at the Lt common carotid bifurcation/bulb w/o evidence of hemodynamically significant stenosis b/l. -MRI brain ordered to r/o ischemia/hemorrhage -Dr. Rodriguez (neuro consult)- recs MRI/MRA w/o contrast of head and neck. working dx of ? vasovagal syncope, preceded by vertigo. No seizure, Non-focal neuro exam normal. Echo- mild TR, LVEF nl. - Pt was prescribed with amlodipine 5/20 benazepril. - currently holding flomax and HTN meds, will start amlodipine 5 tm due to pt being hypertensive currently. Hold benazepril now in case of orthostatic hypotension. 2. BPH: - Continue flomax DVT prophylaxis Lovenox 40mg SQ daily FEN NS 75mL/hr monitor electrolytes low Na/low fat diet Dispo: potential d/c tomorrow if MRI/MRA normal. Visit type - Emergency Visit Emergency Visit: Yes ED Registration Date: 02/01/19 Care time: The patient presented to the Emergency Department on the above date and was hospitalized for further evaluation of their emergent condition. - New Patient This patient is new to me today: Yes Date on this admission: 02/02/19 - Critical Care Critical Care patient: No - Discharge Referral Referred to [facility] Med P.C.: No ATTENDING PHYSICIAN STATEMENT I saw and evaluated the patient. I reviewed the resident's note and discussed the case with the resident. I agree with the resident's findings and plan as documented. SUBJECTIVE: OBJECTIVE: ASSESSMENT AND PLAN:
--- NOTE | 2019-02-02 16:20 | PN ---
Teaching Attending Note Name of Resident: Silas Leyva ATTENDING PHYSICIAN STATEMENT I saw and evaluated the patient. I reviewed the resident's note and discussed the case with the resident. I agree with the resident's findings and plan as documented. SUBJECTIVE: denies WHITE, no visual changes, no C or palpitations , no SOB. reports light headedness when getting up. one episode of light headedness while walking. he denies LOC even yesterday OBJECTIVE: NAD CV: RRR Lungs: CTAB Abd: soft, NT, Nd , NL BS Ext: no edema or erythema Neuro: EOMI, no facial droop,no nystagmus, tongue at mid line, round equal pupils, reactive to light, strength 5/5 in upper andl ower extremities proximally and distally. sensation to light touch NL. reflexes: 1+ knee jerk b/l , 2+ biceps B/l ASSESSMENT AND PLAN: 63 y/o man with h/o HTN, BPH, rectal cancer, possible remote hx of VT who presented with near syncope . 1- Near syncope: suspect orthostatic hypotension as light headedness happens with position change ( getting up), denies vertigo. vasovagal etiology is also possible as he described an episode while walking in hot weather . do not suspect stroke/TIA or seizure . need to r/o arrythmias ( devin and tachy ) - orthostatics were not checked with standing and now received IVF. - will repeat Ortho VS although might not be helpful - appreciate neuro input. MRIs ordered. - monitor on tele - echo reviewed. - IVF 2- H/o HTN: - give norvasc in am , hold benazapril in case has orthostatic hypotesnion 3- H/o BPH: cont flomax dispo : after tele, and MRI he probably can be dc'd
[2019-02-02] MEDS: SODIUM CHLORIDE 1,000 ML IV SCH (21:00)
[2019-02-03 00:44] LABS: COCAINE, UR NEGATIVE ng/ml (CUTOFF=300); METHADONE, UR NEGATIVE ng/ml (CUTOFF=300); OPIATES, URI NEGATIVE ng/ml (CUTOFF=300); PHENCYCLIDINE,URINE NEGATIVE ng/ml (CUTOFF=25); URINE AMPHETAMINES NEGATIVE ng/ml (CUTOFF=500); URINE BARBITURATES NEGATIVE ng/ml (CUTOFF=200); URINE BENZODIAZEPINES NEGATIVE ng/ml (CUTOFF=200)
[2019-02-03 01:24] VITALS: PULSE 63
[2019-02-03 06:25] VITALS: TEMP 97.8
[2019-02-03 06:27] LABS: BASO % 0.5 % (0-2.0); EOS % 1.1 % (0-4.5); HEMATOCRIT 42.3 % (35.4-49); HEMOGLOBIN 14.4 GM/dL (11.7-16.9); LYMPH % 14.1 % (8-40); MCHC 34.1 g/dl (32.0-35.9); MEAN CELL VOLUME 88.2 fl (80-96); MEAN PLT VOLUME 9.9 fl (7.5-11.1); MONO % 9.3 % (3.8-10.2); PLATELET COUNT 187 K/MM3 (134-434); WHITE BLOOD COUNT 6.5 K/mm3 (4.0-10.0)
[2019-02-03 07:00] LABS: ALBUMIN 3.5 g/dl (3.4-5.0); BILIRUBIN,TOTAL 0.3 mg/dL (0.2-1); BLOOD UREA NITROGEN 8.8 mg/dL (7-18); CALCIUM 8.9 mg/dL (8.5-10.1); CREATININE 0.9 mg/dL (0.55-1.3); POTASSIUM 4.4 mmol/L (3.5-5.1); TOT PROT 6.4 g/dl (6.4-8.2)
[2019-02-03] MEDS ORDERED: amLODIPine BESYLATE 5 MG TABLET (FP) PO SCH (10:00)
[2019-02-03] MEDS: ENOXAPARIN NA (PORCINE) 40 MG/0.4 ML DISP.SYRIN SQ SCH (10:20)
[2019-02-03 11:28] VITALS: BP 126/76
--- NOTE | 2019-02-03 12:28 | PN ---
Teaching Attending Note Name of Resident: Silas Leyva ATTENDING PHYSICIAN STATEMENT I saw and evaluated the patient. I reviewed the resident's note and discussed the case with the resident. I agree with the resident's findings and plan as documented. SUBJECTIVE: no fever or chills, no WHITE , no palpitationns nor cp. no events over night OBJECTIVE: NAD CV: RRR Lungs: CTAB Ext: no edema or erythema ASSESSMENT AND PLAN: 63 y/o man with h/o HTN, BPH, rectal cancer, possible remote hx of VT who presented with near syncope . 1- Near syncope: likely orthostatic hypotension given his presentation . ortho VS done by student yesteday were negative ( done after IVF administration ). could not tolerate MRI as he was clustrophobic and declined. - oral hydraiton at home -cont decreased dose of BP meds - f/u with Dr. Rodriguez for MRI as outpt. case d/w Dr. Rodriguez by resident - tele with Luna Mcintyre, unlikely contributing to any thing. will refer to card as out pt for event monitor placement . Not on any BB . had echo yesterday 2- H/o HTN: - cont norvasc 5 at home instead of Norvasc/benazapril - prescribe ac BP cuff and check BP daily 3- H/o BPH: cont flomax dc home today.
--- NOTE | 2019-02-03 14:25 | DS ---
Physical Exam: SUBJECTIVE: Patient seen and examined at the bedside this AM. No acute events overnight. OBJECTIVE: Vital Signs Period Temp Pulse Resp BP Sys/Sandoval Pulse Ox Last 24 Hr 97.5 F-98.6 F 63-68 18-18 124-141/56-76 98-99 PHYSICAL EXAM GENERAL: The patient is awake, alert, and fully oriented, in no acute distress. HEAD: Rt sided bandaid from fall laceration 3-4 stitches. EYES: PERRL, extraocular movements intact, sclera anicteric, conjunctiva clear. Neck- supple. LUNGS: Breath sounds equal, clear to auscultation bilaterally, no wheezes, no crackles, no accessory muscle use. HEART: Regular rate and rhythm, S1, S2 without murmur, rub or gallop. ABDOMEN: Soft, nontender, nondistended, normoactive bowel sounds, no guarding, no rebound. EXTREMITIES: 2+ pulses, warm, well-perfused, no edema. NEUROLOGICAL: Cranial nerves II through XII intact. Normal speech, gait normal, negative romberg sign, negative finger to nose test. PSYCH: Normal mood, normal affect. SKIN: Warm, dry, no rashes or lesions noted. LABS Laboratory Results - last 24 hr 02/02/19 02/02/19 02/03/19 00:10 06:12 05:25 WBC 6.5 RBC 4.80 Hgb 14.4 Hct 42.3 MCV 88.2 MCH 30.0 MCHC 34.1 RDW 14.0 Plt Count 187 MPV 9.9 Absolute Neuts (auto) 4.9 Neutrophils % 75.0 Lymphocytes % 14.1 Monocytes % 9.3 Eosinophils % 1.1 Basophils % 0.5 Nucleated RBC % 0 Sodium 144 Potassium 4.2 Chloride 111 H Carbon Dioxide 27 Anion Gap 6 L BUN 10.2 Creatinine 0.8 Est GFR (CKD-EPI)AfAm 110.96 Est GFR (CKD-EPI)NonAf 95.74 Random Glucose 82 Calcium 8.2 L Phosphorus 2.5 Magnesium 2.4 Total Bilirubin 0.4 AST 14 L ALT 18 Alkaline Phosphatase 50 Troponin I < 0.02 Total Protein 6.2 L Albumin 3.4 TSH 1.64 Opiates Screen Negative Methadone Screen Negative Barbiturate Screen Negative Phencyclidine Screen Negative Ur Amphetamines Screen Negative MDMA (Ecstasy) Screen Negative Benzodiazepines Screen Negative Cocaine Screen Negative U Marijuana (THC) Screen Negative 02/03/19 05:25 WBC RBC Hgb Hct MCV MCH MCHC RDW Plt Count MPV Absolute Neuts (auto) Neutrophils % Lymphocytes % Monocytes % Eosinophils % Basophils % Nucleated RBC % Sodium 141 Potassium 4.4 Chloride 109 H Carbon Dioxide 28 Anion Gap 4 L BUN 8.8 Creatinine 0.9 Est GFR (CKD-EPI)AfAm 105.72 Est GFR (CKD-EPI)NonAf 91.22 Random Glucose 80 Calcium 8.9 Phosphorus Magnesium Total Bilirubin 0.3 AST 12 L ALT 17 Alkaline Phosphatase 52 Troponin I Total Protein 6.4 Albumin 3.5 TSH Opiates Screen Methadone Screen Barbiturate Screen Phencyclidine Screen Ur Amphetamines Screen MDMA (Ecstasy) Screen Benzodiazepines Screen Cocaine Screen U Marijuana (THC) Screen HOSPITAL COURSE: Date of Admission:02/01/19 This is a 63 y/o M w HTN, HLD, and rectal cancer who was admitted for falling after syncopizing due to orthostatic hypotension vs vasovagal syncope. Full cardiac workup was negative. Patients orthostatic vitals were normal (after fluids). We held his flomax and his BP meds until today where I started him on 5mg PO amlodipine. . As per neuro (Dr. Rodriguez)- recommends an MRI and an MRA to r/op any hemorrhage / aneurysm as an outpatient due to patient not being able tolerate the closed MRI. Neuro exam has continued to be normal. Images: - Head CT negative for any bleeds or thrombosis. - EKG intially on admission showed 1st degree Heart block and on 02/03 pt had a 2nd degree Mobitz I wenckebacke. - Carotid studies showed no hemodynamically significant stenosis b/l, just some small plaque in the rt common carotid and left common carotid bifurcation along with intimal thickening b/l. Echo- showed mild TR, normal LVEF. Date of Discharge: 02/03/19 Minutes to complete discharge: 35 Discharge Summary Reason For Visit: SYNCOPE Current Active Problems Syncope (Acute) Condition: Improved - Instructions Diet, Activity, Other Instructions: - You were admitted for having dizziness and falling. While you were here we did some tests on your heart (EKG) and we put you on a heart monitor (telemetry) . We did an ultrasound of your neck and it showed some fat (plaque) in your neck arteries. This is not something to be concerned with, but when you see the neurologist you can mention it to him. - While you were here we stopped the amlodipine 5/20 benazepril medication and we placed you on amlodipine 5mg by itself. - Furthermore, we would like you to record your daily Blood pressures in a journal and show it to your primary care doctor. New medication prescribed: Amlodipine 5 mg by mouth once daily Follow ups: - We had a brain doctor (neurologist) Dr. Chetan Rodriguez, see you and he recommends you follow up with him in his office in 1 week to do the MRI and MRA imaging of your brain. - While you were here we assessed your heart and it showed that you have an irregular heart beat so we want you to see a senior industrial engineer in 1 week. - We recommend you follow up with your Primary care doctor (Dr. Wily Dubois) to tell him that we decreased your Blood pressure medication amlodipine 5 mg/20 mg benazepril to just only 5mg amlodipine because that may be the cause of your dizziness. You can ask for Dr. Silas Leyva to see you over there, as you requested. - Please continue all your other home medications as prescribed. - Come back to the emergency department if you have any worsening of your symptoms: chest pain, dizziness, shortness of breath, vomiting, abdominal pain. Referrals: Wily Dubois MD [Staff Physician] - Chetan Rodriguez DO [Staff Physician] - Edgar Magana MD [Staff Physician] - Disposition: HOME - Home Medications Comprehensive Discharge Medication List: Ambulatory Orders Fenofibrate [Lofibra] 160 mg PO DAILY 10/07/16 Simvastatin 20 mg PO DAILY 10/07/16 Tamsulosin HCl 0.4 mg PO DAILY 02/01/19 Amlodipine Besylate [Norvasc -] 5 mg PO DAILY #30 tablet 02/03/19 Miscellaneous Medical Supply [Outpatient Order] 1 each ASDIR #1 [facility] [place] patient is new to me today: No Emergency Visit: Yes ED Registration Date: 02/01/19 Care time: The patient presented to the Emergency Department on the above date and was hospitalized for further evaluation of their emergent condition. Critical Care patient: No - Discharge Referral Referred to [facility] Med P.C[facility] No ATTENDING PHYSICIAN STATEMENT I saw and evaluated the patient. I reviewed the resident's note and discussed the case with the resident. I agree with the resident's findings and plan as documented. SUBJECTIVE: OBJECTIVE: ASSESSMENT AND PLAN:
--- NOTE | 2019-02-07 10:00 | EKG ---
Test Reason : Blood Pressure : / mmHG Vent. Rate : 078 BPM Atrial Rate : 078 BPM P-R Int : 222 ms QRS Dur : 080 ms QT Int : 380 ms P-R-T Axes : 013 001 000 degrees QTc Int : 433 ms SINUS RHYTHM WITH 1ST DEGREE A-V BLOCK LIKELY NORMAL ECG WHEN COMPARED WITH ECG OF 01-FEB-2019 15:34, ST VARIATIONS Confirmed by SHOSHANA ESPINOZA MD ([id number]) on 02/07/2019 10:00:15 AM Referred By: Confirmed By:SHOSHANA ESPINOZA MD
== END 2019-02-03 15:21 | disposition home or self-care (01) | DRG 312 ==
LOC: JER 15:20 → JERBED 20:06 → J4S 02-02 16:37
PROVIDERS: ADMIT Internal Medicine; ATTEND Internal Medicine
PROC: 0HQ1XZZ Repair Face Skin, External Approach (ICD-10-PCS; principal; 2019-02-01)
DX: I95.1 Orthostatic hypotension (principal); I10 Essential (primary) hypertension; I44.1 Atrioventricular block, second degree; Z85.048 Personal history of other malignant neoplasm of rectum, rectosigmoid junction, and anus; M54.16 Radiculopathy, lumbar region; E66.9 Obesity, unspecified; Z68.31 Body mass index [BMI] 31.0-31.9, adult; S01.111A Laceration without foreign body of right eyelid and periocular area, initial encounter; W01.0XXA Fall on same level from slipping, tripping and stumbling without subsequent striking against object, initial encounter; Y93.89 Activity, other specified; Y92.89 Other specified places as the place of occurrence of the external cause; Y99.8 Other external cause status; E78.5 Hyperlipidemia, unspecified; Z85.038 Personal history of other malignant neoplasm of large intestine; N40.0 Benign prostatic hyperplasia without lower urinary tract symptoms
CPT/HCPCS: 36415; 70450-TC; 71045-TC-FY; 80053; 80307; 81003; 82550; 82553; 82962; 83735; 84100; 84443; 84484; 85025; 90715; 93005; 93010; 93306-TC; 93880-TC; 99284-25; J7030